=== PATIENT | female | born 1950 | race Caucasian/White ===

== ENCOUNTER → 2017-01-28 | Outpatient (CLI) | payer MEDICARE, OTHER ==
[~2017-01-28] MED LIST: BIOTIN5000 MCG PO; CALTRATE 600+D1 EAC2 PO; CENTRUM SILVER1 EACH PO; CLARITIN10 MG PO; CULTURELLE1 CAP PO; SALINE NASAL SP88 ML NS
== END | disposition disaster alternative care site (69) ==
LOC: GBCOE 14:17
DX: Z12.31 Encounter for screening mammogram for malignant neoplasm of breast (principal); Z13.820 Encounter for screening for osteoporosis; M85.89 Other specified disorders of bone density and structure, multiple sites; Z78.0 Asymptomatic menopausal state
CPT/HCPCS: G0202

== ENCOUNTER → 2017-01-31 | Day surgery (SDC) | payer MEDICARE, OTHER ==
[~2017-01-31] VITALS: Ht 162.6 cm; Wt 52.6 kg
== END | disposition disaster alternative care site (69) ==
LOC: GPOC 01-25 09:00 → GEND 07:15 → GPOC 09:00 → GEND 09:00
PROC: 0DBH8ZX Excision of Cecum, Via Natural or Artificial Opening Endoscopic, Diagnostic (ICD-10-PCS; principal; 2017-01-31)
DX: Z12.11 Encounter for screening for malignant neoplasm of colon (principal); D12.0 Benign neoplasm of cecum; K57.30 Diverticulosis of large intestine without perforation or abscess without bleeding; Z87.442 Personal history of urinary calculi; Z90.89 Acquired absence of other organs; Z87.19 Personal history of other diseases of the digestive system; Z80.0 Family history of malignant neoplasm of digestive organs; Z98.890 Other specified postprocedural states
CPT/HCPCS: J1100; J2001; J2405; J7030